=== PATIENT | female | born 1955 | race Caucasian/White ===

== ENCOUNTER 2018-04-05 16:29 | Observation (INO) ==
[2018-04-05] MEDS ORDERED: ONDANSETRON 4 MG/2 ML VIAL IV STA (17:23)
[2018-04-05 18:07] LABS: Basophils # 0.1 10*3/uL (0.0-0.2); Basophils % 0.5 % (0.0-0.8); Eosinophils # 0.1 10*3/uL (0.0-0.87); Eosinophils % 0.6 % (0.00-10.9); Hematocrit 37.3 VOL% (35.7-47.0); Hemoglobin 12.2 GM/DL (12.0-16.0); Immature Granulocytes % 0.4 %; Immature Granulocytes Absolute 0.05 #; Lymphocytes # 4.7 10*3/uL (1.4-4.0); Lymphocytes % 37.9 % (21.3-54.2); Mean Corpuscular HGB Conc 32.7 GM/DL (32-36); Mean Corpuscular Hemoglobin 31 PG (27-34); Mean Corpuscular Volume 95.2 FL (87-102); Mean Platelet Volume 11.1 FL (9.6-12.0); Monocytes % 7.6 % (1.7-12.7); Neutrophils # 6.6 10*3/uL (1.4-7.4); Platelet Count 216 T/CUMM (130-400); Red Blood Count 3.92 MC/CUMM (3.8-5.5); Red Cell Distribution Width 13.1 % (9.3-17.3); White Blood Count 12.4 T/CUMM (4-12)
[2018-04-05 18:17] LABS: Albumin 3.9 G/DL (3.4-5.0); Bilirubin,Total 0.7 MG/DL (0.2-1.0); CKMB % 2.2 %; Calcium 8.8 MG/DL (8.5-10.1); Osmolality,Calculated 280.4 MOS/KG (273-304); Potassium 3.3 MMOL/L (3.5-5.1)
[2018-04-05 18:20] LABS: Troponin I 1.08 NG/ML (0.00-0.045)
[2018-04-05 18:25] LABS: INR 0.9; Partial Thromboplastin Time 23.8 SECS (0-40)
[2018-04-05] MEDS ORDERED: ONDANSETRON 4 MG/2 ML VIAL IV PRN (19:00)
[2018-04-05] MEDS ORDERED: LABETALOL 20 MG/4 ML SYRINGE IV PRN (19:02)
[2018-04-05] MEDS ORDERED: ALBUTEROL 2.5 MG/3 ML NEB RESP TX PRN (19:05)
[2018-04-05] MEDS ORDERED: ONDANSETRON 4 MG TABLET PO PRN (19:05)
[2018-04-05] MEDS ORDERED: LORazepam 2 MG/1 ML VIAL IV PRN (19:21)
[2018-04-05] MEDS: levETIRAcetam 500 MG TABLET PO SCH (21:00)
[2018-04-05] MEDS ORDERED: ATORVASTATIN 80 MG TABLET PO SCH (21:00)
[2018-04-05] MEDS: THEOPHYLLINE ER 300 MG TABLET PO SCH (21:01)
[2018-04-05] MEDS: NON-FORMULARY MEDICATION (Morphine Sulfate/Naltrexone [Embeda 20/0.8] 1 CAPSULE) PO SCH (23:33)
[2018-04-06 01:24] LABS: Basophils # 0.1 10*3/uL (0.0-0.2); Basophils % 0.4 % (0.0-0.8); Eosinophils # 0.1 10*3/uL (0.0-0.87); Eosinophils % 0.8 % (0.00-10.9); Hematocrit 32.9 VOL% (35.7-47.0); Hemoglobin 10.6 GM/DL (12.0-16.0); Immature Granulocytes % 0.4 %; Immature Granulocytes Absolute 0.04 #; Lymphocytes # 3.2 10*3/uL (1.4-4.0); Mean Corpuscular HGB Conc 32.2 GM/DL (32-36); Mean Corpuscular Hemoglobin 30 PG (27-34); Mean Corpuscular Volume 93.7 FL (87-102); Mean Platelet Volume 11.2 FL (9.6-12.0); Monocytes # 1.3 10*3/uL (0.11-0.8); Monocytes % 11.2 % (1.7-12.7); Neutrophils # 6.7 10*3/uL (1.4-7.4); Neutrophils % 59.2 % (38.7-73.9); Platelet Count 228 T/CUMM (130-400); Red Blood Count 3.51 MC/CUMM (3.8-5.5); Red Cell Distribution Width 13.1 % (9.3-17.3); White Blood Count 11.3 T/CUMM (4-12)
[2018-04-06 01:36] LABS: Bilirubin,Total 0.4 MG/DL (0.2-1.0); Calcium 8.4 MG/DL (8.5-10.1); Potassium 3.1 MMOL/L (3.5-5.1); Risk Ratio 3.78; Thyroid Stimulating Hormone 3.58 uIU/ml (0.358-3.74); Total Protein 6.1 G/DL (6.4-8.3)
[2018-04-06] MEDS ORDERED: MAGNESIUM SULF RIDER 2 GM in PREMIX 1 EACH IV PRN (04:45)
[2018-04-06] MEDS ORDERED: MAGNESIUM SULF RIDER 4 GM in PREMIX 1 EACH IV PRN (04:45)
[2018-04-06] MEDS: POTASSIUM CHLORIDE 20 MEQ TABLET PO PRN ×4 (05:20→16:02)
[2018-04-06] MEDS: IPRATROPIUM 500 MCG/2.5 ML NEB RESP TX SCH ×3 (07:59→18:40)
[2018-04-06] MEDS: ASPIRIN 325 MG TABLET PO SCH (08:52)
[2018-04-06] MEDS: THEOPHYLLINE ER 300 MG TABLET PO SCH ×2 (08:52→20:31)
[2018-04-06] MEDS: NICOTINE 21 MG/24 HR PATCH TRANSDERM SCH (08:52)
[2018-04-06] MEDS: levETIRAcetam 500 MG TABLET PO SCH (08:52)
[2018-04-06] MEDS ORDERED: POTASSIUM CHLORIDE RIDER 10 MEQ in PREMIX 1 EACH IV PRN (09:27)
[2018-04-06] MEDS: NON-FORMULARY MEDICATION (Morphine Sulfate/Naltrexone [Embeda 20/0.8] 1 CAPSULE) PO SCH ×2 (09:57→20:32)
[2018-04-06] MEDS: CYANOCOBALAMIN 500 MCG TABLET PO SCH (09:58)
[2018-04-06] MEDS ORDERED: ATORVASTATIN 40 MG TABLET PO SCH (17:41)
[2018-04-06] MEDS: METOPROLOL TARTRATE 25 MG TABLET PO SCH (20:31)
[2018-04-06] MEDS ORDERED: GABAPENTIN 300 MG CAPSULE PO ONE (21:00)
[2018-04-06 22:08] LABS: Apearance,Urine Slightly Hazy (Clear); Bilirubin,Urine Negative (Negative); Blood, Urine Negative (Negative); Calcium Oxalate Crystals,Urine Moderate /HPF (Few); Glucose,Urine (UA) Negative (Negative); Ketones,Urine Negative (Negative); Mucus,Urine Occasional /LPF (Occasional); Nitrite,Urine Negative (Negative); Protein,Urine Negative; RBC,Urine 12 /HPF (0-4); Squamous Epithelial Cell,Urine Occasional /HPF (0-10); Urine Color Yellow (Yellow); WBC,Urine 3 /HPF (0-6)
[2018-04-06 23:02] LABS: Barbiturates Screen,Urine Negative (Negative); Benzodiazepines Screen,Urine Positive (Negative); Cannabinoid Screen,Urine Negative (Negative); Opiate Screen,Urine Positive (Negative); Phencyclidine Screen,Urine Negative (Negative)
[2018-04-07] MEDS: IPRATROPIUM 500 MCG/2.5 ML NEB RESP TX SCH ×3 (08:02→15:00)
[2018-04-07] MEDS: NON-FORMULARY MEDICATION (Morphine Sulfate/Naltrexone [Embeda 20/0.8] 1 CAPSULE) PO SCH (08:44)
[2018-04-07] MEDS: CYANOCOBALAMIN 500 MCG TABLET PO SCH (08:44)
[2018-04-07] MEDS: THEOPHYLLINE ER 300 MG TABLET PO SCH (08:44)
[2018-04-07] MEDS: METOPROLOL TARTRATE 25 MG TABLET PO SCH (08:45)
[2018-04-07] MEDS: NICOTINE 21 MG/24 HR PATCH TRANSDERM SCH (08:45)
[2018-04-07] MEDS: GABAPENTIN 100 MG CAPSULE PO SCH ×2 (08:45→15:44)
[2018-04-07] MEDS: ASPIRIN 325 MG TABLET PO SCH (08:45)
[2018-04-07] MEDS ORDERED: SPIRONOLACTONE 25 MG TABLET PO SCH (09:00)
[2018-04-07] MEDS ORDERED: LISINOPRIL 2.5 MG TABLET PO SCH (09:00)
[2018-04-07] MEDS ORDERED: CYANOCOBALAMIN 1000 MCG/1 ML VIAL IM ONE (09:50)
[2018-04-07] MEDS ORDERED: LORazepam 1 MG TABLET PO PRN (09:54)
[2018-04-07] MEDS ORDERED: LIDOCAINE 5% PATCH TRANSDERM SCH (10:00)
[2018-04-07 11:43] VITALS: BP 100/73
== END 2018-04-07 15:54 | disposition home or self-care (01) ==
LOC: N.ED 16:29 → N.EDINP 16:29 → N.TELEN 19:23
PROVIDERS: ADMIT Internal Medicine; ATTEND Internal Medicine